=== PATIENT | male | born 1945 | race Caucasian/White ===

== ENCOUNTER 2020-02-18 17:21 | Observation (INO) ==
[2020-02-18] MEDS ORDERED: NITROSTAT SL PRN (17:50)
[2020-02-18] MEDS ORDERED: MORPHINE SULFATE INJ 2 MG INJ IVP PRN (17:50)
[2020-02-18] MEDS ORDERED: HumuLIN R SC PRN (17:58)
[2020-02-18] MEDS ORDERED: NS 1000 ML 1,000 ML IV SCH (18:00)
[2020-02-18] MEDS ORDERED: ATIVAN TAB 1 MG PO PRN (18:05)
[2020-02-18 18:14] LABS: BASOPHILS # (AUTO) 0.2 X10^3/uL (0.0-0.1); BASOPHILS % (AUTO) 1.2 % (0.2-1.0); EOSINOPHILS # (AUTO) 0.3 x10^3/uL (0.0-0.2); EOSINOPHILS % (AUTO) 1.8 % (0.9-2.9); HEMATOCRIT 38.3 % (42.0-54.0); HEMOGLOBIN 12.5 g/dL (13.5-18.0); LYMPHOCYTES # (AUTO) 2.9 X10^3/uL (1.3-2.9); LYMPHOCYTES % (AUTO) 17.7 % (21.0-51.0); MEAN CORPUSCULAR HEMOGLOBIN 29.5 pg (27.0-34.0); MEAN CORPUSCULAR HGB CONC 32.6 g/dL (33.0-35.0); MEAN CORPUSCULAR VOLUME 90.4 fL (80.0-100.0); MEAN PLATELET VOLUME 8.6 fL (7.4-11.0); MONOCYTES # (AUTO) 1.2 x10^3/uL (0.3-0.8); MONOCYTES % (AUTO) 7.3 % (0.0-13.0); NEUTROPHILS # (AUTO) 11.7 x10^3/uL (2.2-4.8); PLATELET COUNT 234 X10^3/uL (150.0-450.0); RED BLOOD COUNT 4.24 X10^6/uL (4.7-6.0); RED CELL DISTRIBUTION WIDTH 13.8 % (11.6-16.5); WHITE BLOOD COUNT 16.2 X10^3/uL (3.6-10.0)
[2020-02-18 18:30] LABS: BLOOD UREA NITROGEN 26 mg/dL (7-18); CALCIUM 10.4 mg/dL (8.5-10.1); CARBON DIOXIDE 24.5 mmol/L (21-32); CHLORIDE 108 mmol/L (98-107); CREATININE 1.45 mg/dL (0.70-1.30); SODIUM 143 mmol/L (136-145); TROPONIN I < 0.02 ng/mL (0-1.5); eGFR NON BLACK RACES 50 (>60)
[2020-02-18 18:40] LABS: ALANINE AMINOTRANSFERASE 28 Units/L (12-78); ALBUMIN 3.7 g/dL (3.4-5.0); ALKALINE PHOSPHATASE 72 Units/L (46-116); ASPARTATE AMINO TRANSFERASE 23 Units/L (15-37); CKMB % 4.2 % (<4); CREATINE KINASE 79 Units/L (39-308); CREATINE KINASE MB 3.3 ng/mL (0-4.0); MAGNESIUM 0.9 mg/dL (1.7-2.9); TOTAL PROTEIN 7.3 g/dL (6.4-8.2)
[2020-02-18] MEDS: PROTONIX INJ 40 MG VIAL IVP SCH (18:50)
[2020-02-18] MEDS ORDERED: MAGNESIUM SULFATE 1 GRAM/100 mL PREMIX 1 G/100 ML BAG IV ONE (18:52)
[2020-02-18] MEDS: MAGNESIUM SULFATE 1 GRAM/100 mL PREMIX 1 GM/100 ML BAG IV PRN ×4 (19:01→23:13)
[2020-02-18 19:44] VITALS: BMI 21.1
[2020-02-18] MEDS ORDERED: SNACK - Diabetic Appropriate PO SCH (20:00)
[2020-02-18 20:08] LABS: BILIRUBIN,URINE NEGATIVE (NEGATIVE); BLOOD/HEMOGLOBIN,URINE NEGATIVE (NEGATIVE); GLUCOSE, URINE NEGATIVE (NEGATIVE); KETONES,URINE NEGATIVE (NEGATIVE); LEUKOCYTE ESTERASE ,URINE NEGATIVE (NEGATIVE); NITRITES,URINE NEGATIVE (NEGATIVE); PROTEIN,URINE 1+ (NEGATIVE); UROBILINOGEN,URINE NORMAL (NORMAL)
[2020-02-18 20:24] LABS: APPEARANCE,URINE CLEAR (CLEAR); BACTERIA,URINE NEGATIVE /HPF (NEGATIVE); COLOR,URINE YELLOW (YELLOW); RBC,URINE NONE SEEN /HPF (0-3); SQUAMOUS EPITHELIAL CELL,UR RARE /HPF (NEGATIVE)
[2020-02-18] MEDS: LOVENOX INJ 60 MG SYR SC SCH (20:57)
--- NOTE | 2020-02-18 22:30 | RAD ---
Chest AP portableIndication: Hypertension.FINDINGSThere is no pneumothorax or effusion. Heart size is prominent. Monitor leads obscure minimal detail. Mild COPD type changes noted. No dense consolidation seen.IMPRESSIONProminent heart size and COPD suggested. Follow-up with PA and lateral chest to better evaluate the lung bases. Study is mildly limited due to positioning and overlying monitoring leadsElectronically signed by: DAVID VEGA (February 18, 2020 22:28:55)
[2020-02-19 00:59] LABS: CKMB % 4.1 % (<4); CREATINE KINASE 68 Units/L (39-308); CREATINE KINASE MB 2.8 ng/mL (0-4.0); TROPONIN I < 0.02 ng/mL (0-1.5)
[2020-02-19] MEDS: MAGNESIUM SULFATE 1 GRAM/100 mL PREMIX 1 GM/100 ML BAG IV PRN ×2 (01:01→02:26)
[2020-02-19 06:24] LABS: BASOPHILS # (AUTO) 0.1 X10^3/uL (0.0-0.1); BASOPHILS % (AUTO) 0.8 % (0.2-1.0); EOSINOPHILS # (AUTO) 0.5 x10^3/uL (0.0-0.2); EOSINOPHILS % (AUTO) 4.2 % (0.9-2.9); HEMATOCRIT 36.3 % (42.0-54.0); LYMPHOCYTES # (AUTO) 3.4 X10^3/uL (1.3-2.9); LYMPHOCYTES % (AUTO) 29.4 % (21.0-51.0); MEAN CORPUSCULAR HEMOGLOBIN 29.6 pg (27.0-34.0); MEAN CORPUSCULAR HGB CONC 32.9 g/dL (33.0-35.0); MEAN CORPUSCULAR VOLUME 89.8 fL (80.0-100.0); MEAN PLATELET VOLUME 9.1 fL (7.4-11.0); MONOCYTES # (AUTO) 0.8 x10^3/uL (0.3-0.8); NEUTROPHILS # (AUTO) 6.8 x10^3/uL (2.2-4.8); NEUTROPHILS % (AUTO) 58.6 % (42.0-75.0); PLATELET COUNT 196 X10^3/uL (150.0-450.0); RED BLOOD COUNT 4.04 X10^6/uL (4.7-6.0); RED CELL DISTRIBUTION WIDTH 13.7 % (11.6-16.5); WHITE BLOOD COUNT 11.6 X10^3/uL (3.6-10.0)
--- NOTE | 2020-02-19 06:35 | RAD ---
HISTORYShortness of breathSTUDYCHEST, 1 [id number]/04/2020FINDINGSThe heart is within normal limits in size. The abhishek are normal. The lungs are mildly hyperinflated but free of acute alveolar infiltrates. Mild bilateral lower lobe interstitial lung changes are present likely chronic. No pleural effusions are identified. Bony thorax is unremarkable.IMPRESSIONLungs hyperinflated but free of acute infiltratesMild bilateral lower lobe interstitial infiltrates likely chronicElectronically signed by: ILDEFONSO DIA (February 19, 2020 06:33:56)
[2020-02-19 06:50] LABS: ALANINE AMINOTRANSFERASE 25 Units/L (12-78); ALBUMIN 3.5 g/dL (3.4-5.0); ALKALINE PHOSPHATASE 69 Units/L (46-116); ASPARTATE AMINO TRANSFERASE 21 Units/L (15-37); BLOOD UREA NITROGEN 25 mg/dL (7-18); CALCIUM 10.2 mg/dL (8.5-10.1); CARBON DIOXIDE 24.5 mmol/L (21-32); CHLORIDE 107 mmol/L (98-107); CHOL/HDL RATIO 2.3 (0.0-5.0); CHOLESTEROL 77 mg/dL (0-200); CKMB % 4.4 % (<4); COR NA(FOR HYPERGLY) 139 mmol/L (136-145); CREATINE KINASE 69 Units/L (39-308); CREATININE 1.43 mg/dL (0.70-1.30); DIGOXIN 0.51 ng/mL (0.9-2); HDL CHOLESTEROL 34 mg/dL (40-60); MAGNESIUM 2.3 mg/dL (1.7-2.9); SODIUM 139 mmol/L (136-145); TOTAL PROTEIN 6.7 g/dL (6.4-8.2); TRIGLYCERIDES 119 mg/dL (0-150); TROPONIN I < 0.02 ng/mL (0-1.5); eGFR NON BLACK RACES 51 (>60)
[2020-02-19] MEDS ORDERED: ROCEPHIN VIAL 1 GRAM 1 G in NS 100 ML IV + SPIKE MINIBAG* 100 ML IV SCH (09:00)
[2020-02-19] MEDS: PROTONIX INJ 40 MG VIAL IVP SCH (09:16)
[2020-02-19 10:13] VITALS: BP 156/74
[2020-02-19] MEDS: LOVENOX INJ 60 MG SYR SC SCH (10:15)
--- NOTE | 2020-02-29 09:18 | DR.CARTERS ---
Short Stay Summary - Admission Date Date of Admission: 02/18/20 - Discharge Date Discharge Date: 02/19/20 - Admission Diagnoses (1) Chest pain, rule out acute myocardial infarction Status: Acute (2) Dyspnea Status: Acute (3) Pulmonary infiltrate Status: Acute - Hospital Course Hospital Course: IS A 74 YEAR OLD PATIENT OF OURS WHO PRESENTED TO THE HOSPITAL A DIRECT ADMISSION DUE TO COMPLAINTS OF CHEST PAIN, SHORTNESS OF BREATH, AND PALPITATIONS. 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 HE DENIED FEVER OR COUGH. HE REPORTED TAKING A NITROGLYCERINE AT HOME WITHOUT SIGNIFICANT IMPROVEMENT IN SYMPTOMS. HIS PMH INCLUDES: RETINAL SURGERY, HTN, ATRIAL FIBRILLATION, GALLBLADDER DISEASE, CHRONIC LOW BACK PAIN, DDD, HYPOTHYROIDIMS, ANEMIA, CARDIAC STENTS, APPENDECTOMY, CHOLECYSTECTOMY, AND THYROIDECTOMY. ON ARRIVAL TO THE HOSPITAL, VITALS WERE 98.7-97-18-98%-126/76. LABS WERE OBTAINED. ABNORMAL LAB VALUES INCLUDE THE FOLLOWING: WBC 16.2, RBC 4.24, HGB 12.5, HCT 38.3, INR 2.28, PTT 39.1, CHLORIDE 108, BUN 26, CREATININE 1.45, MAGNESIUM 0.9, DIGOXIN 0.51. CARDIAC ENZYMES WERE WITHIN NORMAL LIMITS. URINALYSIS WAS UNREMARKABLE. A CHEST XRAY WAS OBTAINED AND REVEALED: Prominent heart size and COPD suggested. Follow-up with PA and lateral chest to better evaluate the lung bases. Study is mildly limited due to positioning and overlying monitoring leads. EKG REVEALED: ATRIAL FIBRILLATION WITH HR 89. HE WAS STARTED ON NORMAL SALINE AT 75 ML/HR, MORPHINE 2MG IV Q2H PRN PAIN, NITROGLYCERINE 0.4MG SL Q5M PRN, HUMULIN R SLIDING SCALE, PROTONIX 40MG IV DAILY, ATIVAN 1MG PO Q8H PRN, LOVENOX 60MG SC BID, AND THE MAGNESIUM PROTOCOL. WE PLANNED TO OBTAIN SERIAL CARDIAC ENZYMES AND EKGS. OTHERWISE, WE PLANNED TO FOLLOW UP WITH AM LABS AND CONTINUE TO MONITOR. ON THE MORNING FOLLOWING ADMISSION, PATIENT IS ALERT AND ORIENTED, SITTING ON THE SIDE OF THE BED ON MORNING ROUNDS. HE DENIES CHEST PAIN, PALPITATIONS, OR SHORTNESS OF BREATH THIS MORNING. ON EXAMINATION, HEART IS REGULAR IN RATE AND RHYTHM. BILATERAL LUNGS ARE NOTED WITH DIMINISHED LUNG SOUNDS. ABDOMEN IS FLAT, SOFT, AND NON-TENDER WITH NORMAL BOWEL SOUNDS NOTED IN ALL QUADRANTS. HIS VITALS THIS MORNING ARE: 97.7-69-20-99%-156/74. LABS WERE OBTAINED. ABNORMAL LAB VALUES INCLUDE THE FOLLOWING: WBC 11.6, RBC 4.04, HGB 12.0, HCT 36.3, INR 2.35, BUN 25, CREATININE 1.43, GLUCOSE 117, HDL 34. CARDIAC ENZYMES HAVE BEEN WITHIN NORMAL LIMITS. MOST RECENT EKG REVEALED: SINUS RHYTHM WITH HR 61. A CHEST XRAY WAS REPEATED AND REVEALED: Lungs hyperinflated but free of acute infiltrates. Mild bilateral lower lobe interstitial infiltrates likely chronic. WE PLANNED FOR DISCHARGE. INSTRUCTIONS FOR MEDICATIONS AND FOLLOW-UP WERE DISCUSSED WITH PATIENT AND HIS SPOUSE. HE WAS GIVEN A NEW PRESCRIPTIONS FOR MAGNESIUM OXIDE 800MG PO BID AND CEFDINIR 300MG PO BID X 10 DAYS DUE TO LOWER LOBE INFILTRATES. HE WAS INSTRUCTED THAT WE WOULD DO A TELEMEDICINE CONFERENCE WITH HIM ON 02/21/20 AT 10:40 FOR FOLLOW-UP. THEY VERBALIZED UNDERSTANDING OF ALL ORDERS. PATIENT WAS DISCHARGED HOME WITH SPOUSE IN IMPROVED CONDITION. - Discharge Medications Discharge Medications: Home Medication List Creon 24,000 cap PO TID 02/18/20 [History] atorvastatin 20 mg PO DAILY 02/18/20 [History] digoxin 0.125 mcg PO DAILY 02/18/20 [History] glipizide 5 mg PO QAM 02/18/20 [History] levothyroxine 50 mcg PO DAILY 02/18/20 [History] levothyroxine 200 mcg PO DAILY 02/18/20 [History] losartan 25 mg PO DAILY 02/18/20 [History] metformin 1,000 mg PO BID 02/18/20 [History] pantoprazole 40 mg PO BID 02/18/20 [History] spironolactone 25 mg PO DAILY 02/18/20 [History] warfarin 5 mg PO DAILY 02/18/20 [History] cefdinir 300 mg PO BID #20 cap 02/19/20 [Rx] magnesium oxide 800 mg PO BID #120 tab 02/19/20 [Rx] Prescriptions: cefdinir Silviano Zhang magnesium oxide Silviano Zhang - Discharge Plan Disposition: HOME, SELF-CARE Condition: Stable Prescriptions: cefdinir 300 mg PO BID #20 cap magnesium oxide 800 mg PO BID #120 tab - Follow up/Referrals Follow up/Referrals: Silviano Zhang [Primary Care Provider] - 02/21/20 10:40 am (tele-health telephone visit ) - Instructions Instructions: Type 2 Diabetes Mellitus, Diagnosis, Adult, Nonspecific Chest Pain, [id number], Chest Wall Pain, [id number], Hypertension, [id number], Angina Pectoris, [id number], Community-Acquired Pneumonia, Adult, [id number] Additional Instructions: COUMADIN DIET TOLERATED. ACTIVITY TOLERATED. Forms: Excuse From Work or School, Precautions for COVID19, Patient Portal, Social Distancing
== END 2020-02-19 11:30 | disposition home or self-care (01) ==
LOC: MED/SURG
PROVIDERS: ADMIT Internal Medicine; ATTEND Internal Medicine
DX: M54.5 Low back pain; R94.4 Abnormal results of kidney function studies; I48.91 Unspecified atrial fibrillation; R94.31 Abnormal electrocardiogram [ECG] [EKG]; D72.828 Other elevated white blood cell count; R91.8 Other nonspecific abnormal finding of lung field; R07.89 Other chest pain; R79.1 Abnormal coagulation profile; D64.89 Other specified anemias; R06.02 Shortness of breath; I10 Essential (primary) hypertension
CPT/HCPCS: 36415; 71010; 71045; 80053; 80061; 80162; 81001; 82550; 82553; 83735; 84484; 85025; 85610; 85730; 93005; 96360; 96361; 96372; A4222; C9113; G0378; J0696; J1650; J3475; J7030; J7050